=== PATIENT | female | born 1970 | race Caucasian/White ===

== ENCOUNTER 2018-08-23 04:08 | Emergency (ER) | payer OTHER ==
[2018-08-23 04:21] VITALS: TEMP 98; BMI 21.6
[2018-08-23] MEDS ORDERED: METOCLOPRAMIDE HCL INJECTION 10 MG/2 ML VIAL IVPUSH ONE (05:05)
[2018-08-23] MEDS ORDERED: METOCLOPRAMIDE HCL INJECTION 10 MG/2 ML VIAL ONE (05:29)
[2018-08-23 05:49] LABS: BASO % 1.1 % (0-2.0); EOS % 1.7 % (0-4.5); HEMATOCRIT 40.8 % (32.4-45.2); HEMOGLOBIN 13.3 GM/dL (10.7-15.3); LYMPH % 15.5 % (8-40); MCH 28.7 pg (25.7-33.7); MCHC 32.7 g/dl (32.0-36.0); MEAN CELL VOLUME 87.7 fl (80-96); MEAN PLT VOLUME 7.5 fl (7.5-11.1); MONO % 5.8 % (3.8-10.2); NEUT % 75.9 % (42.8-82.8); PLATELET COUNT 699 K/MM3 (134-434); RBC 4.65 M/mm3 (3.60-5.2); RDW 13.8 % (11.6-15.6); WHITE BLOOD COUNT 13.3 K/mm3 (4.0-10.0)
--- NOTE | 2018-08-23 06:08 | PDOC ---
History of Present Illness - General Chief Complaint: Syncope/Near Syncope Stated Complaint: SYNCOPE Time Seen by Provider: 08/23/18 04:14 - History of Present Illness Initial Comments: Aimee Castillo is a 47yo woman with a PMH of HTN, HLD, migraines, and seizures who presents with a suspected seizure at home. Ms Stephenson reports that she had woken up overnight with pain in her right calf. She frequently gets right calf pain at night, and the pain resolves when she gets up to walk. If she lets it go for too long without walking, the pain becomes severe and travels up her leg; at that point she becomes nauseated and lightheaded. Tonight, she got up to walk the pain off. She does not remember falling or feeling odd in any way, but her family was wakened by her falling and ran to find her on the ground. A family member present at bedside reports that for 2-3 minutes, she was unable to communicate at all. After that, she was able to nod or shake her head in response to questions, but she did not open her eyes at that time. She states that she could not open them. After a few more minutes, she was able to report her name correctly. They are not sure whether she was confused at that time or was able to answer more complex questions. They did not witness any seizure activity nor did they see Ms Stephenson unconscious. Ms Stephenson currently reports that she has a right-sided headache, photophobia , and mild nausea. She has no other complaints at this time. Past History - Past Medical History Allergies/Adverse Reactions: Allergies Allergy/AdvReac Type Severity Reaction Status Date / Time No Known Allergies Allergy Verified 08/23/18 04:15 Home Medications: Ambulatory Orders Candesartan/Hydrochlorothiazid [Candesartan-Hctz 16-12.5 mg Tb] 1 each PO DAILY 08/23/18 COPD: No HTN: Yes Seizures: Yes Other medical history: THROMBOCYTHEMIA - Immunization History Immunization Up to Date: Yes - Suicide/Smoking/Psychosocial Hx Smoking History: Never smoked Have you smoked in the past 12 months: No Information on smoking cessation initiated: No Hx Alcohol Use: No Drug/Substance Use Hx: No Substance Use Type: None Review of Systems - Review of Systems Comments:: General: No fevers, no chills, no weight or appetite change, no malaise HEENT: No changes in vision, no changes in hearing, no congestion, no sore throat. +migraines CV: No chest pain, no palpitations, no LE edema Pulm: No SOB, no cough, no wheezing GI: No nausea or vomiting, no change in bowel habits, no melena : No frequency, no urgency, no dysuria Musc: No back pain, no joint swelling, no recent injury Skin: No rash, no lesions, no erythema Endo: No excessive thirst, no heat/cold intolerance Heme: No unusual bruising or bleeding, no swollen glands Neuro: See HPI. No numbness/tingling, no focal weakness Vasc: No claudication Psych: No recent change in mood, no SI or HI *Physical Exam - Vital Signs Last Vital Signs Temp Pulse Resp BP Pulse Ox 98.0 F 79 18 121/77 100 08/23/18 04:15 08/23/18 04:15 08/23/18 04:15 08/23/18 04:15 08/23/18 04:15 - Physical Exam Comments: General: Comfortable, no acute distress HEENT: PERRL, EOMI, MMM, voice normal, normal neck ROM, no LAD Cards: RRR, no murmur appreciated Pulm: Comfortable on room air, clear to auscultation bilaterally Abd: Soft, nontender, nondistended Ext: Atraumatic. No LE edema. ROM intact. Strength 5/5 and equal bilaterally Vasc: Extremities WWP. Palpable radial and pedal pulses bilaterally Skin: Normal color, no rashes or lesions Neuro: A&Ox3, CN grossly intact, normal speech, motor/sensory grossly intact and symmetric Psych: Mood appropriate to situation ED Treatment Course - LABORATORY CBC & Chemistry Diagram: 08/23/18 05:40 08/23/18 05:40 - ADDITIONAL ORDERS Additional order review: 08/23/18 05:40 RBC 4.65 MCV 87.7 MCHC 32.7 RDW 13.8 MPV 7.5 Neutrophils % 75.9 Lymphocytes % 15.5 Monocytes % 5.8 Eosinophils % 1.7 Basophils % 1.1 - RADIOLOGY Radiology Studies Ordered: Category Date Time Status HEAD CT WITHOUT CONTRAST [CT] Stat CT Scan 08/23/18 05:05 Ordered - Medications Given in the ED: ED Medications Discontinued Medications Generic Name Dose Route Start Last Admin Trade Name Julisa PRN Reason Stop Dose Admin Metoclopramide HCl 10 mg 08/23/18 05:05 08/23/18 05:46 Reglan Injection - IVPUSH 08/23/18 05:06 10 mg ONCE ONE Administration Medical Decision Making - Medical Decision Making 08/23/18 05:59 Aimee Castillo is a 47yo woman with a PMH of HTN, HLD, migraines, and seizures who presents with a suspected seizure at home. - Known history of seizures, though she no longer takes medication or sees a neurologist. She has not had a seizure for years, but has had two within the past month. Also reports a history of migraines, and is currently reporting right-sided headache, photophobia, and mild nausea. Given migraine symptoms currently, seizure-like activity could be related to migraines. - No indication of cardiac syncope, but will check EKG to r/o acute abnormalities. Currently no chest pain, SOB, diaphoresis, or vomiting. No cardiac history. - CBC, CMP, mag, phos ordered to evaluate for abnormalities, especially electrolyte abnormalities - CT head to evaluate for intracranial bleed, as the fall/seizure was unwitnessed, and to potentially determine the cause of the recent seizures. 08/23/18 07:21 - Labs reviewed. Notable only for WBC 13.3, otherwise unremarkable - UA negative - CT and EKG to be completed Patient signed out to Dr Reynaga for the remainder of her care. Discussed with Dr Mccoy. Lexis Conklin PGY1 *DC/Admit/Observation/Transfer Diagnosis at time of Disposition: Fall - Referrals - Patient Instructions - Post Discharge Activity
[2018-08-23 06:09] LABS: ALBUMIN 4.1 g/dl (3.4-5.0); ALK PHOS 78 U/L (45-117); ANION GAP 6 MMOL/L (8-16); BILIRUBIN,TOTAL 0.3 mg/dL (0.2-1); BLOOD UREA NITROGEN 15 mg/dL (7-18); CALCIUM 9.5 mg/dL (8.5-10.1); CHLORIDE 102 mmol/L (98-107); CO2 31 mmol/L (21-32); CREATININE 0.8 mg/dL (0.55-1.3); GLUCOSE,RANDOM 121 mg/dL (74-106); MAGNESIUM 2.3 mg/dL (1.8-2.4); PHOSPHOROUS 3.2 mg/dL (2.5-4.9); POTASSIUM 4.3 mmol/L (3.5-5.1); SGOT/AST 25 U/L (15-37); SGPT/ALT 26 U/L (13-61); SODIUM 138 mmol/L (136-145); TOT PROT 7.9 g/dl (6.4-8.2)
[2018-08-23 06:42] LABS: URINE APPEARANCE CLEAR; URINE BILIRUBIN NEGATIVE (<2.0 mg/dL); URINE COLOR LTYELLOW; URINE GLUCOSE (UA) NEGATIVE (NEGATIVE); URINE KETONE NEGATIVE (NEGATIVE); URINE LEUK ESTERASE NEGATIVE (NEGATIVE); URINE NITRITE NEGATIVE (NEGATIVE); URINE PROTEIN 1+ (NEGATIVE); URINE UROBILINOGEN NEGATIVE mg/dL (0.2-1.0)
[2018-08-23 06:44] LABS: HCG,QUALITATIVE URINE Negative
--- NOTE | 2018-08-23 06:46 | PDOC ---
Attending Attestation - Resident Resident Name: RubinLexis - ED Attending Attestation I have performed the following: I have examined & evaluated the patient, The case was reviewed & discussed with the resident, I agree w/resident's findings & plan, Exceptions are as noted - HPI HPI: 08/23/18 06:46 47F pmh migraine, seizures, no longer on AED, seizure free for "a while" recent episodes. Here after she collapsed. Pt has a chronically cramping leg that resolves with walking, she was walking tonight when she felt nauseous and lightheaded and collapsed. The sound of her fall brought family to her side immediately. No tremors observed, no incontinences, questionable post-ictal period that resolved before presentation. Denies cp, palpitations, sob - Physicial Exam PE: 08/23/18 06:46 Agree with documented resident exam - Medical Decision Making 08/23/18 06:48 consider recurrence of seizure d/o 2/2 off AED or new mass?, complex migraine, vasovagal?, anemia? arrythmia f/u labs, ct h, ekg No risk factors for cardiac syncope but f/u ekg If workup neg for acute pathology, dc with close neurology follow up 08/23/18 06:51 No anemia on CBC
[2018-08-23 06:47] LABS: EPI CELLS RARE /HPF (FEW); URINE BACTERIA RARE /hpf (NONE SEEN); URINE MUCUS RARE
--- NOTE | 2018-08-23 07:39 | PDOC ---
*Physical Exam - Vital Signs Last Vital Signs Temp Pulse Resp BP Pulse Ox 98.0 F 79 18 121/77 100 08/23/18 04:15 08/23/18 04:15 08/23/18 04:15 08/23/18 04:15 08/23/18 04:15 - Physical Exam Comments: 08/23/18 08:57 General Appearance: Nourished. No Apparent Distress HEENT: EOMI, JOEY. No Pharyngeal Erythema, Tonsillar Exudate, Tonsillar Erythema Neck: No Cervical Lymphadenopathy Respiratory/Chest: Lungs Clear, Normal Breath Sounds. No Crackles, Rales, Rhonchi, Wheezing Cardiovascular: Regular Rhythm, Regular Rate. No Murmur, Gallops, Rubs Gastrointestinal/Abdominal: Normal Bowel Sounds, Soft. No Guarding, Rebound, Tenderness Musculoskeletal: No CVA Tenderness Extremity: Normal Capillary Refill Integumentary: Normal Color, Dry, Warm Neurologic: cyber operator II-XII NML intact, Fully Oriented, Alert, Normal Mood/Affect, Normal Response, Motor Strength 5/5. ED Treatment Course - LABORATORY CBC & Chemistry Diagram: 08/23/18 05:40 08/23/18 05:40 - ADDITIONAL ORDERS Additional order review: Laboratory Results 08/23/18 08/23/18 05:47 05:40 Sodium 138 Potassium 4.3 Chloride 102 Carbon Dioxide 31 Anion Gap 6 L BUN 15 Creatinine 0.8 Creat Clearance w eGFR > 60 Random Glucose 121 H Calcium 9.5 Phosphorus 3.2 Magnesium 2.3 Total Bilirubin 0.3 AST 25 ALT 26 Alkaline Phosphatase 78 Total Protein 7.9 Albumin 4.1 Urine Color Ltyellow Urine Appearance Clear Urine pH 8.0 Ur Specific [place] 1.018 Urine Protein 1+ H Urine Glucose (UA) Negative Urine Ketones Negative Urine Blood Negative Urine Nitrite Negative Urine Bilirubin Negative Urine Urobilinogen Negative Ur Leukocyte Esterase Negative Urine WBC (Auto) 1 Urine RBC (Auto) 1 Ur Epithelial Cells Rare Urine Bacteria Rare Urine Mucus Rare Urine HCG, Qual Negative 08/23/18 05:40 RBC 4.65 MCV 87.7 MCHC 32.7 RDW 13.8 MPV 7.5 Neutrophils % 75.9 Lymphocytes % 15.5 Monocytes % 5.8 Eosinophils % 1.7 Basophils % 1.1 - Medications Given in the ED: ED Medications Discontinued Medications Generic Name Dose Route Start Last Admin Trade Name Freq PRN Reason Stop Dose Admin Metoclopramide HCl 10 mg 08/23/18 05:05 08/23/18 05:46 Reglan Injection - IVPUSH 08/23/18 05:06 10 mg ONCE ONE Administration Progress Note - Progress Note Progress Note: The patient is a 47 year old female with a history of seizures and migraines who presents for evaluate following falling at home due to a possible seizure. Work up has been negative thus far. The patient is pending CT. Medical Decision Making - Medical Decision Making 08/23/18 08:[address] is unremarkable as preliminarily read by our transition teacher radiologist. The patient appears clinically well on exam. We are comfortable discharging the patient home with neurology follow up. We discussed the results, plan, and return precautions with the patient who voiced understanding and is agreeable with the plan. *DC/Admit/Observation/Transfer Diagnosis at time of Disposition: Fall Qualifiers: Encounter type: initial encounter Qualified Code(s): W19.XXXA - Unspecified fall, initial encounter - Discharge Dispostion Disposition: HOME Condition at time of disposition: Stable Decision to Admit order: No - Referrals Referrals: Panda Delong MD [Staff Physician] - - Patient Instructions Printed Discharge Instructions: DI for Syncope in Adults (Fainting) Additional Instructions: Please return to the ER if you experience concerning or worsening symptoms including worsening difficulty breathing, weakness, or chest pain, seizures, headache. Your lab results were normal here in the ER. Please call to schedule a follow up appointment with our neurologist Dr. Delong within 2-3 days to discuss your ER visit and further management of your symptoms. Por favor, regrese a la tico de emergencias si experimenta problemas o empeoramiento de los sntomas incluyendo empeoramiento de la dificultad respiratoria, debilidad o dolor en el pecho, convulsiones, dolor de tracee. Los resultados de tu laboratorio fueron normales aqu en [facility]. Por favor llame para programar pat nasrin de seguimiento con nuestro neurlogo Dr. Delong dentro de 2-3 neumann para discutir ortiz visita de ER y la administracin adicional de cheng sntomas. Print Language: SERBIAN - Post Discharge Activity
[2018-08-23 08:31] VITALS: BP 100/56; PULSE 78
--- NOTE | 2018-08-23 11:54 | EKG ---
Test Reason : Blood Pressure : / mmHG Vent. Rate : 067 BPM Atrial Rate : 067 BPM P-R Int : 156 ms QRS Dur : 086 ms QT Int : 422 ms P-R-T Axes : 070 057 048 degrees QTc Int : 445 ms POOR DATA QUALITY, INTERPRETATION MAY BE ADVERSELY AFFECTED NORMAL SINUS RHYTHM POSSIBLE LEFT ATRIAL ENLARGEMENT BORDERLINE ECG NO PREVIOUS ECGS AVAILABLE Confirmed by KVNG VERA MD ([id number]) on 08/23/2018 11:54:32 AM Referred By: Confirmed By:KVNG VERA MD
== END 2018-08-23 08:31 | disposition home or self-care (01) ==
LOC: JER 04:08
PROC: 3E033GC Introduction of Other Therapeutic Substance into Peripheral Vein, Percutaneous Approach (ICD-10-PCS; principal; 2018-08-23)
DX: R56.9 Unspecified convulsions (principal); W18.39XA Other fall on same level, initial encounter; Y93.89 Activity, other specified; Y92.89 Other specified places as the place of occurrence of the external cause; I10 Essential (primary) hypertension; E78.5 Hyperlipidemia, unspecified
CPT/HCPCS: 36415; 70450-TC; 80053; 81003; 81015; 83735; 84100; 84703; 85025; 93005; 93010; 99285-25